=== PATIENT | female | born 1985 | race African-American/Black ===

== ENCOUNTER 2017-08-30 16:42 | Emergency (ER) | payer OTHER ==
[~2017-08-30] VITALS: Ht 172.7 cm; Wt 75.0 kg
[2017-08-30] MEDS ORDERED: GELATIN SPONGE,ABSORBABLE 12-7 MM TP ONE (18:00)
[2017-08-30] MEDS ORDERED: PERTUSS(ACELL),DIPH,TET VAC/PF 0.5 ML VIAL IM ONE (18:00)
[2017-08-30] MEDS ORDERED: SILVER NITRATE APPLICATOR 1 EA STICK TP ONE (18:15)
[2017-08-30 18:35] VITALS: BP 129/88
== END 2017-08-30 18:54 | disposition home or self-care (01) ==
LOC: EMS 16:45
DX: S61.012A Laceration without foreign body of left thumb without damage to nail, initial encounter (principal); R03.0 Elevated blood-pressure reading, without diagnosis of hypertension; W45.8XXA Other foreign body or object entering through skin, initial encounter; Y93.89 Activity, other specified; Y92.89 Other specified places as the place of occurrence of the external cause; Y99.8 Other external cause status
CPT/HCPCS: 90471; 90715; 99283

== ENCOUNTER → 2022-05-02 | Outpatient (CLI) | payer OTHER ==
[~2022-05-02] MED LIST: MECL-160 PO
[2022-05-03 04:06] LABS: RUBELLA AB IGG-REFLAB 2.18 index (Immune >0.99); RUBEOLA (MEASLES) IGG 57.8 AU/mL (Immune >16.4)
== END | disposition home or self-care (01) ==
LOC: LABMN 09:58
PROVIDERS: ATTEND Internal Medicine
DX: Z02.1 Encounter for pre-employment examination (principal)
CPT/HCPCS: 86706; 86735; 86762; 86765; 86787